=== PATIENT | female | born 1980 | race American Indian/Alaskan Native ===

== ENCOUNTER 2020-02-11 18:43 | Emergency (ER) | payer BC, MEDICAID ==
--- NOTE | 2020-02-11 21:14 | Emergency Department Report ---
Blank Doc - Documentation Documentation: 39-year-old female that presents with SOB, body aches and cough. Positive exp osure to COVID. This initial assessment/diagnostic orders/clinical plan/treatment(s) is/are subject to change based on patient's health status, clinical progression and re- assessment by fellow clinical providers in the ED. Further treatment and workup at subsequent clinical providers discretion. Patient/guardians urged not to elope from the ED as their condition may be serious if not clinically assessed and managed. Initial orders include: 1- Patient sent to [facility] for further evaluation and treatment 2- CXR
--- NOTE | 2020-02-11 21:42 | XRay Report ---
CHEST 2 VIEWS INDICATION / CLINICAL INFORMATION: cough. COMPARISON: None available. FINDINGS: SUPPORT DEVICES: None. HEART / MEDIASTINUM: No significant abnormality. LUNGS / PLEURA: No significant pulmonary or pleural abnormality. No pneumothorax. ADDITIONAL FINDINGS: No significant additional findings. IMPRESSION: No acute cardiopulmonary abnormality. Signer Name: Avila Pradhan MD Signed: 02/11/2020 9:37 PM Workstation Name: [id number]
[2020-02-12] MEDS ORDERED: ACETAMINOPHEN 500 MG TAB PO ONE (01:45)
[2020-02-12] MEDS ORDERED: ONDANSETRON 4 MG/2 ML INJ IV ONE (01:45)
[2020-02-12] MEDS ORDERED: SODIUM CHLORIDE 0.9% 1000 ML 1,000 ML IV ONE (01:45)
[2020-02-12 02:49] LABS: Basophils % (Auto) 0.5 % (0.0-1.8); Hematocrit 39.2 % (30.3-42.9); Lymphocytes # (Auto) 1.4 K/mm3 (1.2-5.4); Lymphocytes % (Auto) 30.5 % (13.4-35.0); Mean Corpuscular HGB Conc 33 % (30-34); Mean Corpuscular Volume 92 fl (79-97); Monocytes # (Auto) 0.2 K/mm3 (0.0-0.8); Monocytes % (Auto) 4.4 % (0.0-7.3); Platelet Count 208 K/mm3 (140-440); Red Blood Count 4.27 M/mm3 (3.65-5.03); Red Cell Distribution Width 13.6 % (13.2-15.2)
[2020-02-12 03:07] LABS: Alanine Aminotransferase 12 units/L (7-56); Albumin 3.9 g/dL (3.9-5); Blood Urea Nitrogen 11 mg/dL (7-17); Calcium 8.7 mg/dL (8.4-10.2); Hemolysis Index 3
[2020-02-12 03:23] LABS: BUN/Creatinine Ratio 18
[2020-02-12 03:37] VITALS: BP 124/80
[2020-02-12 04:07] LABS: Bacteria,Urine 1+ /HPF (Negative); Bilirubin,Urine NEG (Negative); Blood,Urine LG (Negative); Color,Urine Yellow (Yellow); Mucus,Urine 3+ /HPF
[2020-02-12 04:09] LABS: HCG Qualitative,Urine Negative (Negative)
--- NOTE | 2020-02-12 04:16 | Emergency Department Report ---
ED General Adult HPI - General Chief complaint: Fever Stated complaint: NOT FEELING WELL/WEAK/SOB Time Seen by Provider: 02/11/20 21:13 Source: patient Mode of arrival: Ambulatory Limitations: No Limitations - History of Present Illness Initial comments: Patient is a 39-year-old -[place] female with past medical history of migraine headache who presents to the ED with complaint of acute onset persistent diffuse body aches and pains, nasal and sinus congestion, frontal sinus headache, loss of smell and taste, persistent dry cough, diffuse body aches and pains and generalized weakness with subjective chills and fever for the last 1 week, worse in the last 2 days. Patient states that her tested positive for cough with but she herself tested negative on 06 February 2020. Patient states that in the last 2 days her symptoms have worsened. Patient denies dizziness, syncope, chest pain, shortness of breath, abdominal pain, nausea, vomiting, diarrhea, dysuria, urinary frequency and urgency, sore throat, palpitations, vaginal discharge, low back pain or change in vision. MD Complaint: Generalized weakness; body aches and pains, persistent cough, headache -: Sudden, week(s) (1) Location: head, chest Radiation: non-radiation Severity scale (0 -10): 3 Quality: aching, dull Consistency: constant Improves with: none Worsens with: none Associated Symptoms: denies other symptoms, cough, fever/chills, headaches, loss of appetite, malaise, weakness. denies: confusion, chest pain, diaphoresis, nausea/vomiting, rash, seizure, shortness of breath, syncope Treatments Prior to Arrival: none - Related Data Home Medications Medication Instructions Recorded Confirmed Last Taken Pnv,Calcium 72/Iron/Folic Acid 1 each PO DAILY 01/03/14 01/05/14 01/01/14 [ Vitamin with Low Iron] 1 Previous Rx's Medication Instructions Recorded Last Taken Type Ferrous Sulfate [Feosol 325 MG tab] 325 mg PO BID #60 tablet 01/05/14 Unknown Rx Ibuprofen [Motrin 600 MG tab] 600 mg PO Q8H PRN #30 tablet 01/05/14 Unknown Rx oxyCODONE /ACETAMINOPHEN [Percocet 1 tab PO Q6HR PRN #30 tablet 01/05/14 Unknown Rx 5/325] Rectal Syringe [Enema Syringe] 1 each MO 2XWHS #1 syringe NS 01/07/14 Unknown Rx Acetaminophen [Tylenol] 500 mg PO Q6HR PRN #30 tablet 02/12/20 Unknown Rx Azithromycin [Zithromax Z-ALVARO] 250 mg PO DAILY #6 tablet 02/12/20 Unknown Rx Benzonatate [Tessalon Perles] 100 mg PO Q8HR #30 capsule 02/12/20 Unknown Rx Cetirizine HCl [Zyrtec 10mg tab] 10 mg PO DAILY #30 tablet 02/12/20 Unknown Rx Ondansetron [Zofran Odt] 4 mg PO Q6HR PRN #15 tab.rapdis 02/12/20 Unknown Rx predniSONE [Deltasone] 20 mg PO QDAY #10 tab 02/12/20 Unknown Rx Allergies Allergy/AdvReac Type Severity Reaction Status Date / Time No Known Allergies Allergy Verified 07/19/13 14:29 ED Review of Systems ROS: Stated complaint: NOT FEELING WELL/WEAK/SOB Other details as noted in HPI Constitutional: chills, fever, malaise, weakness Eyes: denies: eye pain, eye discharge, vision change ENT: congestion. denies: ear pain, throat pain Respiratory: cough. denies: shortness of breath, wheezing Cardiovascular: denies: chest pain, palpitations Endocrine: no symptoms reported Gastrointestinal: denies: abdominal pain, nausea, vomiting, diarrhea Genitourinary: denies: urgency, dysuria, discharge Musculoskeletal: arthralgia, myalgia. denies: back pain, joint swelling Skin: denies: rash, lesions Neurological: headache. denies: weakness, paresthesias Psychiatric: denies: anxiety, depression Hematological/Lymphatic: denies: easy bleeding, easy bruising ED Past Medical Hx - Past Medical History Previous Medical History?: Yes Hx Hypertension: No Hx Heart Attack/AMI: No Hx Congestive Heart Failure: No Hx Diabetes: No Hx Deep Vein Thrombosis: No Hx Pulmonary Embolism: No Hx Liver Disease: No Hx Renal Disease: No Hx Sickle Cell Disease: No Hx Headaches / Migraines: Yes Hx Seizures: No Hx Asthma: No Hx COPD: No Hx Tuberculosis: No Hx HIV: No - Social History Smoking Status: Never Smoker Substance Use Type: None - Medications Home Medications: Home Medications Medication Instructions Recorded Confirmed Last Taken Type Pnv,Calcium 72/Iron/Folic Acid 1 each PO DAILY 0901/05/14 01/01/14 History [ Vitamin with Low Iron] 1 Ferrous Sulfate [Feosol 325 MG tab] 325 mg PO BID #60 tablet 01/05/14 Unknown Rx Ibuprofen [Motrin 600 MG tab] 600 mg PO Q8H PRN #30 tablet 01/05/14 Unknown Rx oxyCODONE /ACETAMINOPHEN [Percocet 1 tab PO Q6HR PRN #30 tablet 01/05/14 Unknown Rx 5/325] Rectal Syringe [Enema Syringe] 1 each MO 2XWHS #1 syringe NS 01/07/14 Unknown Rx Acetaminophen [Tylenol] 500 mg PO Q6HR PRN #30 tablet 02/12/20 Unknown Rx Azithromycin [Zithromax Z-ALVARO] 250 mg PO DAILY #6 tablet 02/12/20 Unknown Rx Benzonatate [Tessalon Perles] 100 mg PO Q8HR #30 capsule 02/12/20 Unknown Rx Cetirizine HCl [Zyrtec 10mg tab] 10 mg PO DAILY #30 tablet 02/12/20 Unknown Rx Ondansetron [Zofran Odt] 4 mg PO Q6HR PRN #15 tab.rapdis 02/12/20 Unknown Rx predniSONE [Deltasone] 20 mg PO QDAY #10 tab 02/12/20 Unknown Rx ED Physical Exam - General Limitations: No Limitations General appearance: alert, in no apparent distress - Head Head exam: Present: atraumatic, normocephalic, normal inspection - Eye Eye exam: Present: normal appearance, PERRL, EOMI Pupils: Present: normal accommodation - ENT ENT exam: Present: normal orophraynx, mucous membranes moist, normal external ear exam, other (Grossly congested nasal passages) - Neck Neck exam: Present: normal inspection, full ROM. Absent: meningismus, lymphade nopathy - Respiratory Respiratory exam: Present: normal lung sounds bilaterally. Absent: respiratory distress, wheezes, rales, chest wall tenderness, decreased breath sounds, prolonged expiratory - Cardiovascular Cardiovascular Exam: Present: normal rhythm, tachycardia, normal heart sounds. Absent: systolic murmur, diastolic murmur, rubs, gallop - GI/Abdominal GI/Abdominal exam: Present: soft, normal bowel sounds. Absent: tenderness, guarding, rebound, hyperactive bowel sounds, hypoactive bowel sounds, organomegaly - Extremities Exam Extremities exam: Present: normal inspection, full ROM, normal capillary refill - Back Exam Back exam: Present: normal inspection, full ROM. Absent: tenderness, CVA tenderness (R), CVA tenderness (L), muscle spasm, paraspinal tenderness, vertebral tenderness - Neurological Exam Neurological exam: Present: alert, oriented X3, CN II-XII intact, normal gait, reflexes normal - Psychiatric Psychiatric exam: Present: normal affect, normal mood - Skin Skin exam: Present: warm, dry, intact, normal color. Absent: rash ED Course Vital Signs 02/11/20 02/12/20 21:13 03:36 Temperature 99.8 F H 98.3 F Pulse Rate 112 H 101 H Respiratory 18 18 Rate Blood Pressure 123/84 Blood Pressure 124/80 [Left] O2 Sat by Pulse 100 98 Oximetry ED Medical Decision Making - Lab Data Result diagrams: 02/12/20 02:04 02/12/20 02:04 - Radiology Data Findings [facility] [address] [place] [address] XRay Report Signed Patient: SHANELLE WING MR#: [id number] 2 : 1980 Acct:[id number] Age/Sex: 39 / F ADM Date: 02/11/20 Loc: ED Attending Dr: Ordering Physician: JAH DOWLING NP Date of Service: 02/11/20 Procedure(s): XR chest routine 2V Accession Number(s): [id number] cc: JAH DOWLING NP Fluoro Time In Minutes: CHEST 2 VIEWS INDICATION / CLINICAL INFORMATION: cough. COMPARISON: None available. FINDINGS: SUPPORT DEVICES: None. HEART / MEDIASTINUM: No significant abnormality. LUNGS / PLEURA: No significant pulmonary or pleural abnormality. No pneumothorax. ADDITIONAL FINDINGS: No significant additional findings. IMPRESSION: No acute cardiopulmonary abnormality. Signer Name: Julienne Pradhan MD Signed: 02/11/2020 9:37 PM Workstation Name: [id number] Transcribed By: SS Dictated By: JULIENNE PRADHAN Electronically Authenticated By: JULIENNE PRADHAN Signed Date/Time: 02/11/202136 DD/ 35 TD/TT: - Medical Decision Making This is a 39-year-old -[place] female with past medical history of m igraine headache who presents to the ED with complaint of acute onset persistent diffuse body aches and pains, nasal and sinus congestion, frontal sinus headache, loss of smell and taste, persistent dry cough, diffuse body aches and pains and generalized weakness with subjective chills and fever for the last 1 week, worse in the last 2 days. Patient states that her tested positive for cough with but she herself tested negative on 06 February 2020. Patient states that in the last 2 days her symptoms have worsened. In the ED, patient is alert and oriented x3 and is not in distress. Patient is however tachycardic in triage. Patient was treated for fever and pain in the ED. Chest x-ray shows no acute cardiopulmonary abnormalities or pneumonitis. Lab test results were reviewed and are all nonactionable. Patient was discharged home on medications and advised to follow-up with her primary care physician in 5 to 7 days for reevaluation. Patient was advised to go for repeat outpatient cardiac testing in the next 2 to 3 days and if positive this time to self quarantine for 14 days. Patient was advised to return to the ED immediately if symptoms get worse. - Differential Diagnosis Bronchitis; sinusitis; pneumonia; COVID-19; URI; UTI; Critical care attestation.: If time is entered above; I have spent that time in minutes in the direct care of this critically ill patient, excluding procedure time. ED Disposition Clinical Impression: Acute upper respiratory infection, Acute bacterial sinusitis Acute bronchitis Qualifiers: Bronchitis organism: unspecified organism Qualified Code(s): J20.9 - Acute bro nchitis, unspecified Disposition: DC-01 TO HOME OR SELFCARE Is pt being admited?: No Does the pt Need Aspirin: No Condition: Stable Instructions: Acute Bronchitis (ED), Upper Respiratory Infection (ED), Acute Bacterial Rhinosinusitis (ED) Additional Instructions: All lab test results are unremarkable including chest x-ray which showed no acute cardiopulmonary abnormalities or pneumonitis. Therefore take medication with food, drink plenty of fluids and follow-up with your primary care physician in 5 to 7 days for reevaluation. Return to the ED immediately if symptoms get worse. Go for another outpatient COVID-19 testing and if positive self quarantine for 14 days. Prescriptions: Acetaminophen [Tylenol] 500 mg PO Q6HR PRN #30 tablet PRN Reason: Pain , Severe (7-10) predniSONE [Deltasone] 20 mg PO QDAY #10 tab Benzonatate [Tessalon Perles] 100 mg PO Q8HR #30 capsule Azithromycin [Zithromax Z-ALVARO] 250 mg PO DAILY #6 tablet Ondansetron [Zofran Odt] 4 mg PO Q6HR PRN #15 tab.rapdis PRN Reason: Nausea Cetirizine HCl [Zyrtec 10mg tab] 10 mg PO DAILY #30 tablet Referrals: [facility] [Provider Group] - 3-5 Days Time of Disposition: 04:20 Print Language: BRAZILIAN
== END 2020-02-12 04:23 | disposition home or self-care (01) ==
LOC: ED 18:43
DX: J20.9 Acute bronchitis, unspecified (principal); J06.9 Acute upper respiratory infection, unspecified; J01.90 Acute sinusitis, unspecified; B96.89 Other specified bacterial agents as the cause of diseases classified elsewhere; G43.909 Migraine, unspecified, not intractable, without status migrainosus; Z79.1 Long term (current) use of non-steroidal anti-inflammatories (NSAID); Z79.2 Long term (current) use of antibiotics; Z79.899 Other long term (current) drug therapy
CPT/HCPCS: 36415; 71046; 80053; 81001; 81025; 83690; 85025; J2405; J7030